=== PATIENT | male | born 1985 | race Caucasian/White ===

== ENCOUNTER 2017-05-23 09:32 | Day surgery (SDC) | payer OTHER ==
[2017-05-23] MEDS ORDERED: NS 1,000 ML IV (10:00)
[2017-05-23] MEDS ORDERED: PROPOFOL 200 MG/20 ML VIAL As Ordered ×2 (10:12→10:28)
== END 2017-05-23 11:30 | disposition home or self-care (01) ==
LOC: M OPP 09:32
DX: D50.9 Iron deficiency anemia, unspecified (principal); K44.9 Diaphragmatic hernia without obstruction or gangrene; G47.33 Obstructive sleep apnea (adult) (pediatric); R51 Headache
CPT/HCPCS: 45378